=== PATIENT | male | born 1995 | race Caucasian/White ===

== ENCOUNTER 2018-10-16 15:04 | Outpatient (CLI) | payer OTHER ==
--- NOTE | 2018-10-16 15:17 | RAD ---
CHEST 2 VIEWS: HISTORY: Chest pain for years. COMPARISON: 10/03/2013. FINDINGS: Heart size is within normal limits. The lungs are clear. IMPRESSION: No acute intrathoracic disease. Stable from prior study. POS: [facility]
== END 2018-10-16 15:05 | disposition home or self-care (01) ==
LOC: SCSRAD 15:04
PROVIDERS: ATTEND Nurse Practitioner Family
DX: R07.89 Other chest pain (principal)
CPT/HCPCS: 71046